=== PATIENT | female | born 1985 | race African-American/Black ===

== ENCOUNTER 2016-12-06 09:13 | Emergency (ER) | payer OTHER ==
[~2016-12-06] VITALS: Ht 152.4 cm; Wt 100.0 kg
[~2016-12-06 09:13] MED LIST: AMOXICILLIN500 MG PO; AMPICILLIN500 MG OR; CIPROFLOXACN500 MG PO; FIORICE1 PO; FISH OIL1000 MG PO; IBUPROFEN600 MG PO; IRON325 MG PO; LORTAB 5 OR; MACROBID100 MG OR; NAPROSYN500 MG OR; NAPROSYN500 MG PO; NO HOME MEDS; NO MEDS; PHENERGAN25 MG RE; PRENATAL1 TA1 PO; PROCARDIA10 MG PO; VISTARIL25 MG PO; ZOFRAN ODT4 MG PO; ZOFRAN ODT8 MG PO
[2016-12-06 09:49] LABS: HEMATOCRIT 36.3 % (37.0-47.0); HEMOGLOBIN 11.9 g/dl (12.0-16.0); IMMATURE GRANULOCYTES 0.4 % (0.0-1.0); MEAN CORPUSCULAR HGB 23.3 pG CALC (26.0-32.0); MEAN CORPUSCULAR HGB CONC 32.8 g/L CALC (32.0-36.0); NEUT# 13.71 thou/uL (2.00-7.15); RED BLOOD COUNT 5.11 mill/uL (4.20-5.60); RED CELL DISTRI WIDTH 15.6 % (11.5-15.5)
[2016-12-06 10:28] LABS: ALBUMIN 4.4 g/dL (3.2-5.0); ALKALINE PHOSPHATASE 72 u/l (38-126); AMYLASE 44 u/l (30-110); ANION GAP 20 (6-22 (CALC)); BILIRUBIN, TOTAL 0.6 mg/dL (0.0-1.4); BUN 7 mg/dL (7-17); BUN/CREATININE RATIO 10 (12-20 (CALC)); CALCIUM 11.2 mg/dL (8.4-10.2); CARBON DIOXIDE 29 mmol/l (22-30); CHLORIDE 92 mmol/l (95-108); CREATININE 0.7 mg/dL (0.5-1.0); GFR > 60 ML/MIN (>=60 (CALC)); GFR FOR AFR.AMER. > 60 ML/MIN (>=60 (CALC)); GLUCOSE 92 mg/dL (65-105); LIPASE 70 u/l (23-300); POTASSIUM 3.6 mmol/l (3.5-5.1); SGOT/AST 19 u/l (14-36); SGPT/ALT 22 u/l (9-52); SODIUM 137 mmol/l (137-146); TOTAL PROTEIN 9.3 g/dL (6.3-8.2)
[2016-12-06 11:03] LABS: URINE BLOOD DIPSTICK NEGATIVE (NEGATIVE); URINE CLARITY CLEAR; URINE COLOR YELLOW; URINE GLUCOSE - DIPSTICK NEGATIVE (NEGATIVE); URINE KETONE >=80 mg/dL (NEGATIVE); URINE LEUK ESTERASE NEGATIVE (NEGATIVE); URINE NITRITE - DIPSTICK NEGATIVE (Negative); URINE PH 5.5 (4.5-8.0); URINE PROTEIN - DIPSTICK NEGATIVE (NEG-TRACE); URINE SPECIFIC GRAVITY 1.025
[2016-12-06 11:06] LABS: URINE BILIRUBIN - DIPSTICK NEGATIVE (NEGATIVE)
[2016-12-06] MEDS ORDERED: ZOFRAN4 MG/TAB PO (11:32)
[2016-12-06 11:49] VITALS: BP 119/77
== END 2016-12-06 12:03 | disposition home or self-care (01) | DRG 781 ==
LOC: ED 09:13
PROVIDERS: Emergency Medicine
DX: O21.0 Mild hyperemesis gravidarum (principal); Z3A.10 10 weeks gestation of pregnancy

== ENCOUNTER 2016-12-18 11:12 | Emergency (ER) | payer OTHER ==
[~2016-12-18] VITALS: Ht 152.4 cm; Wt 93.8 kg
[~2016-12-18 11:12] MED LIST changes: +ZOFRAN4 MG/TAB PO
[2016-12-18 15:20] VITALS: BP 119/60
== END 2016-12-18 15:28 | disposition home or self-care (01) | DRG 778 ==
LOC: ED 11:12
DX: O20.0 Threatened abortion (principal); R10.9 Unspecified abdominal pain; Z3A.12 12 weeks gestation of pregnancy

== ENCOUNTER 2018-12-25 18:07 | Emergency (ER) | payer OTHER ==
[~2018-12-25] VITALS: Ht 152.4 cm; Wt 108.0 kg
[2018-12-25 18:43] LABS: HEMATOCRIT 34.1 % (37.0-47.0); HEMOGLOBIN 10.6 g/dl (12.0-16.0); IMMATURE GRANULOCYTES 0.7 % (0.0-5.0); MEAN CORPUSCULAR HGB 24.7 pG CALC (26.0-32.0); MEAN CORPUSCULAR HGB CONC 31.1 g/L CALC (32.0-36.0); NEUT# 9.04 thou/uL (2.00-7.15); RED BLOOD COUNT 4.3 mill/uL (4.20-5.60); RED CELL DISTRI WIDTH 14.7 % (11.5-15.5)
[2018-12-25 18:44] LABS: MEAN CELL VOLUME 79.3 fL CALC (80.0-100.0)
[2018-12-25 18:45] LABS: URINE BILIRUBIN - DIPSTICK NEGATIVE (NEGATIVE); URINE BLOOD DIPSTICK NEGATIVE (NEGATIVE); URINE COLOR YELLOW; URINE GLUCOSE - DIPSTICK NEGATIVE (NEGATIVE); URINE KETONE NEGATIVE (NEGATIVE); URINE LEUK ESTERASE NEGATIVE (NEGATIVE); URINE NITRITE - DIPSTICK NEGATIVE (Negative); URINE PROTEIN - DIPSTICK NEGATIVE (NEG-TRACE); URINE SPECIFIC GRAVITY 1.015; URINE UROBILINOGEN - DIPSTICK 0.2 E.U./dL (0.2)
[2018-12-25 19:01] LABS: ALBUMIN 4.4 g/dL (3.2-5.0); ALKALINE PHOSPHATASE 78 u/l (38-126); AMYLASE 59 u/l (30-110); ANION GAP 15 (6-22 (CALC)); BILIRUBIN, TOTAL 0.4 mg/dL (0.0-1.4); BUN 19 mg/dL (7-17); BUN/CREATININE RATIO 26 (12-20 (CALC)); CARBON DIOXIDE 25 mmol/l (22-30); CHLORIDE 103 mmol/l (95-108); CREATININE 0.7 mg/dL (0.5-1.0); GFR > 60 ML/MIN (>=60 (CALC)); GFR FOR AFR.AMER. > 60 ML/MIN (>=60 (CALC)); LIPASE 99 u/l (23-300); POTASSIUM 4.1 mmol/l (3.5-5.1); SGOT/AST 18 u/l (14-36); SODIUM 139 mmol/l (137-146); TOTAL PROTEIN 8.4 g/dL (6.3-8.2)
[2018-12-25 20:46] VITALS: BP 109/69
== END 2018-12-25 20:46 | disposition home or self-care (01) ==
LOC: ED 18:07
PROVIDERS: Emergency Medicine
DX: R10.30 Lower abdominal pain, unspecified (principal)
CPT/HCPCS: Q9967

== ENCOUNTER 2019-04-10 12:02 | Observation (INO) | payer BC ==
[~2019-04-10] VITALS: Ht 165.1 cm; Wt 105.8 kg
--- NOTE | 2019-04-10 12:08 | NUR ---
PATIENT AMBULATES TO ROOM WITH STEADY GAIT. BEDSIDE TRIAGE COMPLETED.
--- NOTE | 2019-04-10 12:38 | NUR ---
PT MEDICATED ORDERED FOR PAIN AND FEVER. IV FLUIDS INFUSING WITH NO DIFFICULTY. LIGHTS DIMMED FOR CONFORT.
[2019-04-10 13:15] LABS: HEMATOCRIT 32.9 % (37.0-47.0); HEMOGLOBIN 10.5 g/dl (12.0-16.0); IMMATURE GRANULOCYTES 0.7 % (0.0-5.0); MEAN CELL VOLUME 75.8 fL CALC (80.0-100.0); MEAN CORPUSCULAR HGB 24.2 pG CALC (26.0-32.0); MEAN CORPUSCULAR HGB CONC 31.9 g/L CALC (32.0-36.0); NEUT# 22.83 thou/uL (2.00-7.15); RED BLOOD COUNT 4.34 mill/uL (4.20-5.60); RED CELL DISTRI WIDTH 14.1 % (11.5-15.5)
--- NOTE | 2019-04-10 13:33 | NUR ---
TEMP RECHECK 99.7. PT REPORTS CONTINUED / PAIN TO ABD. MLP NOTIIFIED. AWAITING NEW ORDERS.
[2019-04-10 13:34] LABS: ALKALINE PHOSPHATASE 95 u/l (38-126); ANION GAP 14 (6-22 (CALC)); BILIRUBIN, TOTAL 0.7 mg/dL (0.0-1.4); BUN 8 mg/dL (7-17); BUN/CREATININE RATIO 10 (12-20 (CALC)); CARBON DIOXIDE 23 mmol/l (22-30); CHLORIDE 105 mmol/l (95-108); CREATININE 0.7 mg/dL (0.5-1.0); GFR > 60 ML/MIN (>=60 (CALC)); GFR FOR AFR.AMER. > 60 ML/MIN (>=60 (CALC)); LIPASE 39 u/l (23-300); POTASSIUM 4.2 mmol/l (3.5-5.1); SGOT/AST 16 u/l (14-36); SODIUM 138 mmol/l (137-146); TOTAL PROTEIN 8.4 g/dL (6.3-8.2)
--- NOTE | 2019-04-10 13:49 | NUR ---
MLP AT BEDSIDE TO DISCUSS RESULTS AND PLAN OF CARE.
--- NOTE | 2019-04-10 14:15 | NUR ---
REPORT RECEIVED FROM WAYLON MARINELLI.
--- NOTE | 2019-04-10 14:27 | NUR ---
PATIENT RETURNS FROM CT SCAN, MEDICATED PER MD ORDER. PATIENT UP DATED ON WAIT TIME, VERBAL UNDERSTANDING. WILL CONTINUE TO MONITOR. CALL LIGHT WITHIN REACH.
--- NOTE | 2019-04-10 14:51 | NUR ---
JERZY FOSTER AT BEDSIDE TO DISCUSS RESULTS AND PLAN OF CARE.
--- NOTE | 2019-04-10 15:05 | NUR ---
AT BEDSIDE FOR EXAM. PATIENT MEDICATED WITH 2 MG OF MORPHINE IV FOR GENERALIZED ABD TENDERNESS 02/16. CALL LIGHT GIVEN. INFORMED TO CALL.
[2019-04-10 15:16] LABS: URINE BILIRUBIN - DIPSTICK NEGATIVE (NEGATIVE); URINE BLOOD DIPSTICK TRACE-LYSED (NEGATIVE); URINE COLOR YELLOW; URINE GLUCOSE - DIPSTICK NEGATIVE (NEGATIVE); URINE KETONE NEGATIVE (NEGATIVE); URINE LEUK ESTERASE TRACE (NEGATIVE); URINE NITRITE - DIPSTICK NEGATIVE (Negative); URINE PROTEIN - DIPSTICK NEGATIVE (NEG-TRACE); URINE SPECIFIC GRAVITY <=1.005; URINE UROBILINOGEN - DIPSTICK 0.2 E.U./dL (0.2)
--- NOTE | 2019-04-10 16:00 | NUR ---
PATIENT RESTING ON STRETCHER. NO DISCOMFORT NOTED. WAITING ON ROOM ASSIGNMENT
--- NOTE | 2019-04-10 16:19 | NUR ---
REPORT CALLED TO JANET JACKSON.
--- NOTE | 2019-04-10 16:27 | NUR ---
PATIENT TRANSPORTED TO [facility] VIA STRETCHER, BELONGINGS SENT UP WITH PATIENT, PHONE, WALLLET, AND CLOTHING/SHOES. JANET JACKSON INFORMED OF PATIENT ARRIVAL TO ROOM. CARE RELINQUISHED.
--- NOTE | 2019-04-10 16:28 | NUR ---
PT ARRIVED FROM ER VIA WC WITH STAFF
--- NOTE | 2019-04-10 16:45 | NUR ---
ASSESSMENT IS COMPLTED: IV SITE IS FREE FROM REDNESS OR EDEMA. HR IS REG,PULSES ARE STRONG X4, ABD IS SOFT WITH ACTIVE BS. BREATH SOUNDS ARE CLEAR, BILATERALLY. CONTINUE TO OSBERVE AND MONITOR.
[2019-04-10 16:47] VITALS: BP 103/71
--- NOTE | 2019-04-10 18:40 | NUR ---
PT C/O ABD PAIN, INFORMING RE: NO PAIN MEDICATION ORDERED.
--- NOTE | 2019-04-10 18:45 | NUR ---
BEDSIDE REPORT RECEIVED FROM JANET JACKSON. PT RESTING IN BED SUPINE; ALERT AND ORIENTED. C/O 6/10 LOWER ABDOMINAL PAIN. RESPIRATIONS EVEN AND UNLABORED ON ROOM AIR. PLAN OF CARE REVIEWED. PT ENCOURAGED TO VERBALIZE CONCERNS. STATES UNDERSTANDING. SAFETY MEASURES IN PLACE. CALL LIGHT WITHIN REACH.
--- NOTE | 2019-04-10 19:15 | NUR ---
ASSESSMENT COMPLETED AND WNL BESIDES ABDOMINAL PAIN. IV FLUIDS INFUSING WITHOTU DIFFICULTY; IV SITE APPEARS HEALTHY.
[2019-04-10 19:27] VITALS: BP 104/72
--- NOTE | 2019-04-10 20:45 | NUR ---
MORHINE ADMINSITERED FOR LOWER ABDOMINAL PAIN; PT RESTING ON RIGHT SIDE WITH EYES CLOSED AND NO SIGNS OF DISTRESS.
--- NOTE | 2019-04-10 21:30 | NUR ---
ARRIVED AT BEDSIDE AND REQUESTED NURSE TO REVIEW POC. POC DISCUSSED WITH HIM AND PT INCLUDING NPO STATUS, CT RESULTS, AND BADA CONSULT. STATES THAT HE WANTS TO LEAVE AND TAKE PT TO A HOSPITAL IN [place] BECAUSE THAT IS WHERE THEY LIVE. COMFIRMED WITH PT. EXPLAINED PT'S CONDITION, NEED FOR TREATMENT, AND AMA FORM. PT STATES THAT SHE WANTS TO LEAVE AT HUSBANDS RECOMMENDATION. DR. NUNEZ NOTIFIED.
--- NOTE | 2019-04-10 21:48 | NUR ---
Discharge instructions given. Patient verbalizes understanding of same. Discharged in stable condition via Wheelchair to Home with spouse. All belongings sent with pt.
== END 2019-04-10 21:48 | disposition left against medical advice (07) | DRG 872 ==
LOC: ED 12:02 → ED-I 15:26 → ED 15:41 → MS2 15:42
PROVIDERS: ADMIT Internal Medicine; ATTEND Internal Medicine
DX: A41.9 Sepsis, unspecified organism (principal); K56.609 Unspecified intestinal obstruction, unspecified as to partial versus complete obstruction
CPT/HCPCS: G0378; J0131; Q9967

== ENCOUNTER 2020-11-30 21:39 | Emergency (ER) | payer BC ==
[~2020-11-30] VITALS: Ht 165.1 cm; Wt 97.0 kg
[2020-11-30] MEDS ORDERED: KEFLEX500 M1 PO (22:16)
[2020-11-30 23:35] VITALS: BP 93/54
== END 2020-11-30 23:40 | disposition home or self-care (01) | DRG 603 ==
LOC: ED 21:39
DX: L03.012 Cellulitis of left finger (principal)

== ENCOUNTER 2023-02-15 22:25 | Emergency (ER) | payer SELFPAY ==
[~2023-02-15] VITALS: Ht 167.6 cm; Wt 90.0 kg
[~2023-02-15 22:25] MED LIST changes: +KEFLEX500 M1 PO
[2023-02-16] MEDS ORDERED: TAM75CAP PO (00:41)
[2023-02-16 01:40] VITALS: BP 110/70
== END 2023-02-16 01:40 | disposition home or self-care (01) | DRG 195 ==
LOC: ED 22:25
DX: J10.1 Influenza due to other identified influenza virus with other respiratory manifestations (principal); Z20.822 Contact with and (suspected) exposure to COVID-19

== ENCOUNTER 2024-08-21 18:43 | Emergency (ER) | payer OTHER ==
[~2024-08-21] VITALS: Ht 167.6 cm; Wt 112.0 kg
[~2024-08-21 18:43] MED LIST changes: +PENICILLIN V P500 MG PO; +TAM75CAP PO
[2024-08-21] MEDS ORDERED: IBUPROFEN 800 MG/TAB PO ONE (18:55)
[2024-08-21] MEDS ORDERED: DECADRON4 MG PO (22:43)
[2024-08-21] MEDS ORDERED: NAPROXEN EC500 MG PO (22:43)
[2024-08-21 23:23] VITALS: BP 119/74
== END 2024-08-21 23:23 | disposition home or self-care (01) | DRG 552 ==
LOC: ED 18:43
DX: S13.9XXA Sprain of joints and ligaments of unspecified parts of neck, initial encounter (principal); V43.52XA Car driver injured in collision with other type car in traffic accident, initial encounter; W22.11XA Striking against or struck by driver side automobile airbag, initial encounter; S40.022A Contusion of left upper arm, initial encounter